=== PATIENT | female | born 1945 | race Caucasian/White ===

== ENCOUNTER 2023-04-29 15:29 | Inpatient (IN) | payer MEDICARE, MEDICAID ==
[~2023-04-29 15:29] MED LIST: Iopamidol-370 76% 500 ML MDV (1 ML CHARGE) ONE
[2023-04-29 16:03] LABS: Actual Bicarbonate (HCO3v) 24.3 mEq/L (22-28); Analyzer IN Cardio ER; Base Excess 1.4 mEq/L (-2.0 to +3.0); Calcium, Ionized (venous) 1.02 mmol/L (1.16-1.32); Chloride (VBG) 100 mmol/L (98-106); Hematocrit-VBG 39 % (36.0-47.0); Hemoglobin (Hb) 13.4 g/dL (11.7-16.1); Potassium (VBG) 3.51 mmol/L (3.70-5.30); Sodium 138 mmol/L (133-146); pH (venous) 7.483 (7.32-7.43)
[2023-04-29 16:05] LABS: #Eosinphils 0.1 thou/uL (0.0-0.7); #Monocytes 0.4 thou/uL (0.11-0.59); #Neutrophils 8.7 thou/uL (1.40-6.50); %Basophils 0.1 % (0.0-1.0); %Eosinophils 0.5 % (0.0-10.0); %Lymphocytes 5.1 % (21.0-51.0); %Monocytes 4.1 % (0.0-10.0); %Neutrophils 89.7 % (42.0-75.0); Hematocrit 38.3 % (36.0-47.0); Hemoglobin 12.1 g/dL (12.0-16.0); Mean Corpuscular HGB CONC 31.6 g/dL (32.0-36.0); Mean Corpuscular Hemoglobin 27.8 pg (27.0-31.0); Mean Platelet Volume 10.3 fL (7.4-10.4); Platelet Count 143 10x3/uL (130-400); RBC Distribution Width 14.1 % (11.5-14.5); Red Blood Cell (RBC) Count 4.35 mill/uL (4.20-5.40); White Blood Cell (WBC) Count 9.7 10x3/uL (4.8-10.8)
[2023-04-29] MEDS ORDERED: Acetaminophen 650 MG Suppository ONE (16:12)
[2023-04-29 16:28] LABS: ALT (SGPT) 19 U/L (8-55); AST (SGOT) 23 U/L (5-34); Albumin 3.6 g/dL (3.4-4.8); Alkaline Phosphatase 115 U/L (40-110); Anion Gap 16 mmol/L (10-20); BUN (Urea Nitrogen) 22 mg/dL (9.8-20.1); Bilirubin, Total 0.6 mg/dL (0.2-1.2); Calc. Creatinine Clearance 0 mL/min (70-130); Carbon Dioxide 26 mmol/L (23-31); Chloride 101 mmol/L (98-107); Estimated GFR 77; Globulin 3.1 g/dL (2.4-3.5); Glucose 167 mg/dL (83-110); Potassium 3.5 mmol/L (3.5-5.1); Protein, Total 6.7 g/dL (5.8-8.1); Sodium 139 mmol/L (136-145)
[2023-04-29 16:31] LABS: Troponin I 0.017 ng/mL (< 0.028)
[2023-04-29] MEDS ORDERED: Acetaminophen 325 MG TAB PO PRN ×3 (19:52→20:00)
[2023-04-29] MEDS ORDERED: Dextrose 5% in Water 1,000 ML IV PRN (19:52)
[2023-04-29] MEDS ORDERED: Dextrose 50% Abboject 50 ML SYRINGE SLOW IVP PRN (19:52)
[2023-04-29] MEDS ORDERED: Ondansetron PF 4 MG/2 ML Vial IVP PRN ×2 (19:52→20:00)
[2023-04-29] MEDS ORDERED: Glucagon 1 MG/ML KIT IM PRN (19:52)
[2023-04-29] MEDS ORDERED: Acetaminophen 650 MG Suppository PR PRN ×2 (19:52→19:54)
[2023-04-29] MEDS ORDERED: HumaLOG 300 UNITS/3 ML VIAL SC PRN ×2 (19:52)
[2023-04-29] MEDS ORDERED: Ondansetron ODT 4 MG TAB PO PRN (19:52)
[2023-04-29] MEDS ORDERED: Dexamethasone 4 mg/ml Vial SLOW IVP SCH (19:59)
[2023-04-29] MEDS ORDERED: Ondansetron ODT 4 MG TAB SL PRN (20:00)
[2023-04-29] MEDS ORDERED: Albuterol HFA (OR) 200 PUFF INH INH PRN (20:02)
[2023-04-29 20:44] VITALS: BMI 38.9
[2023-04-29] MEDS ORDERED: Pharmacy to Dose REMDESIVIR IVPB PRN (20:50)
[2023-04-29] MEDS ORDERED: REMDESIVIR 200 MG in Sodium Chloride 0.9% 250 ML 210 ML IV SCH (21:00)
[2023-04-29] MEDS ORDERED: Albuterol 200 PUFF (6.7GM INHALER) INH PRN (21:07)
[2023-04-30] MEDS: Enoxaparin 40 MG (0.4 mL) SYRINGE SC SCH (07:55)
[2023-04-30] MEDS: Pantoprazole 40 MG VIAL IVP SCH (07:56)
[2023-04-30] MEDS: Dexamethasone 4 mg/ml Vial SLOW IVP SCH (07:56)
[2023-04-30] MEDS: Zinc Sulfate 220 MG CAP PO SCH (07:57)
[2023-04-30] MEDS: Ascorbic Acid 500 mg Chewable Tablet PO SCH (07:57)
[2023-04-30] MEDS: Cholecalciferol (Vitamin D3) 400 UNITS TAB PO SCH (07:57)
[2023-04-30 08:50] LABS: #Monocytes 0.6 thou/uL (0.11-0.59); #Neutrophils 5.7 thou/uL (1.40-6.50); %Basophils 0.1 % (0.0-1.0); %Lymphocytes 8.5 % (21.0-51.0); %Monocytes 8.2 % (0.0-10.0); %Neutrophils 82.6 % (42.0-75.0); Hematocrit 37.7 % (36.0-47.0); Hemoglobin 11.7 g/dL (12.0-16.0); Mean Corpuscular Hemoglobin 27.9 pg (27.0-31.0); Mean Corpuscular Volume 89.8 fl (78.0-98.0); Mean Platelet Volume 10.8 fL (7.4-10.4); Platelet Count 139 10x3/uL (130-400); RBC Distribution Width 14.5 % (11.5-14.5); White Blood Cell (WBC) Count 6.9 10x3/uL (4.8-10.8)
[2023-04-30] MEDS ORDERED: FLU VACC QS2023(65UP)/MF59C/PF 60 MCG/0.5 ML SYRINGE IM ONE (09:00)
[2023-04-30 09:07] LABS: Anion Gap 12 mmol/L (10-20); BUN (Urea Nitrogen) 27 mg/dL (9.8-20.1); Calc. Creatinine Clearance 106 mL/min (70-130); Calcium 8.9 mg/dL (7.8-10.44); Carbon Dioxide 31 mmol/L (23-31); Chloride 100 mmol/L (98-107); Estimated GFR 78; Glucose 80 mg/dL (83-110); Potassium 3.2 mmol/L (3.5-5.1); Sodium 140 mmol/L (136-145)
[2023-04-30 09:09] LABS: ALT (SGPT) 18 U/L (8-55); AST (SGOT) 16 U/L (5-34); Albumin 3.5 g/dL (3.4-4.8); Alkaline Phosphatase 95 U/L (40-110); Bilirubin, Direct 0.2 mg/dL (0.1-0.3); Bilirubin, Total 0.3 mg/dL (0.2-1.2); Protein, Total 6.3 g/dL (5.8-8.1)
[2023-04-30] MEDS: REMDESIVIR 100 MG in Sodium Chloride 0.9% 250 ML 230 ML IV SCH (20:21)
[2023-05-01] MEDS: Enoxaparin 40 MG (0.4 mL) SYRINGE SC SCH (09:46)
[2023-05-01] MEDS: Ascorbic Acid 500 mg Chewable Tablet PO SCH (09:46)
[2023-05-01] MEDS: Dexamethasone 4 mg/ml Vial SLOW IVP SCH (09:46)
[2023-05-01] MEDS: Zinc Sulfate 220 MG CAP PO SCH (09:46)
[2023-05-01] MEDS: Cholecalciferol (Vitamin D3) 400 UNITS TAB PO SCH (09:46)
[2023-05-01] MEDS: Pantoprazole 40 MG VIAL IVP SCH (09:47)
[2023-05-01] MEDS: Benzonatate 100 MG CAP PO PRN ×2 (13:11→19:58)
[2023-05-01 15:10] LABS: ALT (SGPT) 20 U/L (8-55); AST (SGOT) 22 U/L (5-34); Albumin 3.4 g/dL (3.4-4.8); Alkaline Phosphatase 82 U/L (40-110); Bilirubin, Direct 0.1 mg/dL (0.1-0.3); Bilirubin, Total 0.3 mg/dL (0.2-1.2); Protein, Total 6.3 g/dL (5.8-8.1)
[2023-05-01] MEDS: REMDESIVIR 100 MG in Sodium Chloride 0.9% 250 ML 230 ML IV SCH (19:57)
[2023-05-02] MEDS: Benzonatate 100 MG CAP PO PRN ×2 (06:35→20:26)
[2023-05-02 07:08] LABS: ALT (SGPT) 15 U/L (8-55); AST (SGOT) 15 U/L (5-34); Albumin 3.4 g/dL (3.4-4.8); Alkaline Phosphatase 78 U/L (40-110); Bilirubin, Direct 0.1 mg/dL (0.1-0.3); Bilirubin, Total 0.2 mg/dL (0.2-1.2); Protein, Total 6.1 g/dL (5.8-8.1)
[2023-05-02] MEDS: Enoxaparin 40 MG (0.4 mL) SYRINGE SC SCH (08:56)
[2023-05-02] MEDS: Pantoprazole 40 MG VIAL IVP SCH (08:57)
[2023-05-02] MEDS: Dexamethasone 4 mg/ml Vial SLOW IVP SCH (08:57)
[2023-05-02] MEDS: Zinc Sulfate 220 MG CAP PO SCH (08:57)
[2023-05-02] MEDS: Cholecalciferol (Vitamin D3) 400 UNITS TAB PO SCH (08:58)
[2023-05-02] MEDS: Ascorbic Acid 500 mg Chewable Tablet PO SCH (08:58)
[2023-05-02] MEDS: REMDESIVIR 100 MG in Sodium Chloride 0.9% 250 ML 230 ML IV SCH (20:26)
[2023-05-03] MEDS: Cholecalciferol (Vitamin D3) 400 UNITS TAB PO SCH (10:26)
[2023-05-03] MEDS: Dexamethasone 4 mg/ml Vial SLOW IVP SCH (10:26)
[2023-05-03] MEDS: Enoxaparin 40 MG (0.4 mL) SYRINGE SC SCH (10:26)
[2023-05-03] MEDS: Pantoprazole 40 MG VIAL IVP SCH (10:26)
[2023-05-03] MEDS: Zinc Sulfate 220 MG CAP PO SCH (10:26)
[2023-05-03] MEDS: Ascorbic Acid 500 mg Chewable Tablet PO SCH (10:26)
[2023-05-03 10:43] LABS: ALT (SGPT) 15 U/L (8-55); AST (SGOT) 14 U/L (5-34); Albumin 3.3 g/dL (3.4-4.8); Alkaline Phosphatase 76 U/L (40-110); Anion Gap 13 mmol/L (10-20); BUN (Urea Nitrogen) 26 mg/dL (9.8-20.1); Bilirubin, Direct 0.1 mg/dL (0.1-0.3); Bilirubin, Total 0.3 mg/dL (0.2-1.2); Calc. Creatinine Clearance 103 mL/min (70-130); Calcium 8.6 mg/dL (7.8-10.44); Carbon Dioxide 28 mmol/L (23-31); Chloride 103 mmol/L (98-107); Estimated GFR 75; Glucose 105 mg/dL (83-110); Sodium 141 mmol/L (136-145)
[2023-05-03] MEDS: REMDESIVIR 100 MG in Sodium Chloride 0.9% 250 ML 230 ML IV SCH (20:32)
[2023-05-04 09:14] VITALS: BP 153/84; TEMP 97.5
[2023-05-04] MEDS: Ascorbic Acid 500 mg Chewable Tablet PO SCH (10:08)
[2023-05-04] MEDS: Zinc Sulfate 220 MG CAP PO SCH (10:09)
[2023-05-04] MEDS: Cholecalciferol (Vitamin D3) 400 UNITS TAB PO SCH (10:09)
[2023-05-04] MEDS: Enoxaparin 40 MG (0.4 mL) SYRINGE SC SCH (10:10)
[2023-05-04] MEDS: Dexamethasone 4 mg/ml Vial SLOW IVP SCH (10:10)
[2023-05-04] MEDS: Pantoprazole 40 MG VIAL IVP SCH (10:11)
[2023-05-04 11:15] LABS: Hematocrit 37.8 % (36.0-47.0); Hemoglobin 12.1 g/dL (12.0-16.0); Manual Diff?? YES; Mean Corpuscular Hemoglobin 27.9 pg (27.0-31.0); Mean Corpuscular Volume 87.1 fl (78.0-98.0); Mean Platelet Volume 10.2 fL (7.4-10.4); Platelet Count 161 10x3/uL (130-400); RBC Distribution Width 13.6 % (11.5-14.5); Red Blood Cell (RBC) Count 4.34 mill/uL (4.20-5.40); White Blood Cell (WBC) Count 5.3 10x3/uL (4.8-10.8)
[2023-05-04 11:19] LABS: Delete Auto Diff?? YES
[2023-05-04 11:31] LABS: Anion Gap 11 mmol/L (10-20); BUN (Urea Nitrogen) 26 mg/dL (9.8-20.1); Calc. Creatinine Clearance 98 mL/min (70-130); Calcium 8.7 mg/dL (7.8-10.44); Carbon Dioxide 31 mmol/L (23-31); Chloride 104 mmol/L (98-107); Estimated GFR 71; Glucose 119 mg/dL (83-110); Potassium 3.3 mmol/L (3.5-5.1); Sodium 143 mmol/L (136-145)
[2023-05-04 11:57] LABS: Band 1 % (5-11); Lymphocytes 35 % (21-51); Monocytes 6 % (0-10); Neutrophil 57 % (42-75); Reactive Lymphocytes 1 % (0-10)
[2023-05-04 11:58] LABS: Platelet Adequacy Comment Platelets Normal; Polychromasia SLIGHT = 2-3 cells (100X) (0-2/hpf)
== END 2023-05-04 11:21 | DRG 177 ==
LOC: ERS 15:29 → ERHOLD 19:29 → T4-A 21:29
PROVIDERS: ADMIT Student in an Organized Health Care Education/Training Program; ATTEND Family Medicine
PROC: XW033E5 Introduction of Remdesivir Anti-infective into Peripheral Vein, Percutaneous Approach, New Technology Group 5 (ICD-10-PCS; principal; 2023-04-29)
DX: U07.1 COVID-19 (principal); J96.21 Acute and chronic respiratory failure with hypoxia; E11.9 Type 2 diabetes mellitus without complications; I10 Essential (primary) hypertension; L89.159 Pressure ulcer of sacral region, unspecified stage; E78.5 Hyperlipidemia, unspecified; Z79.899 Other long term (current) drug therapy; Z79.84 Long term (current) use of oral hypoglycemic drugs; Z79.4 Long term (current) use of insulin
CPT/HCPCS: 36415; 36416; 51701; 71045; 71275; 80048; 80053; 80076; 82805; 83880; 84484; 85025; 85379; 93005; 94660; C9113; J0248; J1100; J1650; J1815; J7050; J7070; Q9967

== ENCOUNTER 2023-05-30 14:10 | Emergency (ER) | payer MEDICARE, MEDICAID ==
[2023-05-30] MEDS ORDERED: Morphine 4 MG/ML VIAL ONE (15:07)
[2023-05-30 15:20] LABS: #Eosinphils 0.3 thou/uL (0.0-0.7); #Monocytes 0.4 thou/uL (0.11-0.59); #Neutrophils 6.8 thou/uL (1.40-6.50); %Basophils 0.1 % (0.0-1.0); %Eosinophils 3.2 % (0.0-10.0); %Lymphocytes 12.1 % (21.0-51.0); Hematocrit 39.5 % (36.0-47.0); Hemoglobin 12.4 g/dL (12.0-16.0); Mean Corpuscular HGB CONC 31.4 g/dL (32.0-36.0); Mean Corpuscular Hemoglobin 27.7 pg (27.0-31.0); Mean Corpuscular Volume 88.2 fl (78.0-98.0); Mean Platelet Volume 10.3 fL (7.4-10.4); Platelet Count 226 10x3/uL (130-400); RBC Distribution Width 13.4 % (11.5-14.5); Red Blood Cell (RBC) Count 4.48 mill/uL (4.20-5.40); White Blood Cell (WBC) Count 8.6 10x3/uL (4.8-10.8)
[2023-05-30 15:32] LABS: ALT (SGPT) 10 U/L (8-55); AST (SGOT) 14 U/L (5-34); Albumin 3.6 g/dL (3.4-4.8); Alkaline Phosphatase 100 U/L (40-110); Anion Gap 13 mmol/L (10-20); BUN (Urea Nitrogen) 23 mg/dL (9.8-20.1); Bilirubin, Total 0.3 mg/dL (0.2-1.2); CK (CPK) 122 U/L (29-168); Calc. Creatinine Clearance 0 mL/min (70-130); Calcium 9.1 mg/dL (7.8-10.44); Carbon Dioxide 30 mmol/L (23-31); Chloride 103 mmol/L (98-107); Estimated GFR 68; Globulin 2.9 g/dL (2.4-3.5); Glucose 123 mg/dL (83-110); Potassium 3.9 mmol/L (3.5-5.1); Protein, Total 6.5 g/dL (5.8-8.1); Sodium 142 mmol/L (136-145)
[2023-05-30 15:36] LABS: Troponin I 0.011 ng/mL (< 0.028)
[2023-05-30] MEDS ORDERED: Acetaminophen 325 MG TAB ONE (16:46)
== END 2023-05-30 19:44 ==
LOC: ERS 14:10
DX: M25.551 Pain in right hip (principal); M79.601 Pain in right arm; M25.561 Pain in right knee; E11.9 Type 2 diabetes mellitus without complications; I11.0 Hypertensive heart disease with heart failure; I50.9 Heart failure, unspecified; J44.9 Chronic obstructive pulmonary disease, unspecified; Z87.891 Personal history of nicotine dependence; W06.XXXA Fall from bed, initial encounter
CPT/HCPCS: 36415; 70450; 72125; 72170; 72192; 80053; 82550; 84484; 85025; 96374; J2270